=== PATIENT | male | born 1990 | race Caucasian/White ===

== ENCOUNTER → 2019-10-16 08:32 | Outpatient (CLI) | payer SELFPAY ==
--- NOTE | 2019-10-16 08:34 | RAD_ITS ---
STUDY: X-RAY - RIGHT HAND, ATTENTION INDEX FINGER REASON FOR EXAM: Male, 29 years old. LACERATION MID FINGER TECHNIQUE: 3 view(s) of the finger were obtained. COMPARISON: None. FINDINGS: Normal metacarpal head. Normal metacarpophalangeal joint. Normal proximal phalanx. Normal middle phalanx. Normal distal phalanx. Normal proximal interphalangeal joint. Normal distal interphalangeal joint. Diffuse soft tissue swelling. RAD/Finger(s) Min 2 Views IMPRESSION: Diffuse soft tissue swelling. No radiopaque foreign body is seen. Electronically Signed: Shawn Hilario, at 12:15 EST , Service support ,
== END ==
PROVIDERS: PCP Family Medicine; Referring Provider Physician Assistant; Visit Provider Physician Assistant
DX: S69.91XA Unspecified injury of right wrist, hand and finger(s), initial encounter (principal)
CPT/HCPCS: 73140

== ENCOUNTER → 2021-08-25 | Outpatient (CLI) | payer SELFPAY ==
--- NOTE | 2021-08-25 | VAS_PTH ---
PATIENT: YISEL ANDREWS LOC: [facility] U#:[id number] AGE/SX: 31/M ROOM: RE08/25/[address]: Dr. Rodolfo Romero MD : 1990 BED: DIS: 08/25/2021 SPEC #: [id number] RECD: 08/25/21 16:13 STATUS: [place] REM[place]o #: [id number] MANPREET: 08/25/21 00:[address]: Rodolfo Romero DEPT: SURGICAL PATHOLOGY RECD BY: Tre Flanagan ENTERED: 08/26/21 10:30 SP TYPE: VAS OTHR DR: Dr. Chikis Rollins MD Tissues: A - Vas deferens, NOS B - Vas deferens, NOS Procedures: Surgery Specimen Level II HEADER OPERATION: Bilateral partial vasectomy PRE-OP DIAGNOSIS: Sterilization TISSUE SUBMITTED: A ? Right vas deferens, B ? Left vas deferens MICROSCOPIC DIAGNOSIS A. Right vas deferens, segmental vasectomy: Complete cross-section of vas deferens with no pathologic change. B. Left vas deferens, segmental vasectomy: Complete cross-section of vas deferens with no pathologic change. AM:sandi 08/27/2021 MICROSCOPIC DESCRIPTION Slides are reviewed. GROSS DESCRIPTION A - Received is one container designated right vas deferens. The specimen consists of a cylindrical segment of pink-franklin soft tissue measuring 1.4 cm in length and 0.1 cm in maximum diameter. The specimen is totally submitted in one cassette. B - Received is one container designated left vas deferens. The specimen consists of a cylindrical segment of pink-franklin soft tissue measuring 1.1 cm in length and 0.2 cm in maximum diameter. The specimen is totally submitted in one cassette. / AM:sandi 08/26/2021 TC:4 CPT: 10695 x2
== END | disposition home or self-care (01) ==
LOC: LABSPEC 16:26
PROVIDERS: PCP Family Medicine; Referring Provider Surgery; Visit Provider Surgery
DX: Z30.2 Encounter for sterilization (principal)
CPT/HCPCS: 88302

== ENCOUNTER 2021-10-21 14:17 | Outpatient (CLI) | payer SELFPAY ==
[2021-10-22 13:48] LABS: Semen Analysis Post Vas ABSENT
== END 2021-10-21 23:59 | disposition home or self-care (01) ==
LOC: LABSPEC 14:18
PROVIDERS: PCP Family Medicine; Referring Provider Surgery; Visit Provider Surgery
DX: Z30.2 Encounter for sterilization (principal)
CPT/HCPCS: 89321

== ENCOUNTER 2022-05-04 10:31 | Emergency (ER) | payer SELFPAY ==
[2022-05-04 10:31] VITALS: BP 117/73; PULSE 64; RESP 16; TEMP 36.3; O2SAT 98; BMI 24.5
--- NOTE | 2022-05-04 10:46 | EDS_ITS ---
HPI History of Present Illness Chief Complaint: Flank Pain Informant: patient Narrative Narrative: 32-year-old male presenting to the emergency department sudden onset of left flank pain. Patient notes that it seems to radiate around towards his abdomen and is sharp and stabbing. He notes nausea and vomiting. Symptoms began abruptly at 630 when he took a hard landing while spreading maneuver. He denies any urinary symptoms or fevers. He notes there is a family history of kidney stones but he has never had 1. Standing up seems to make this worse. He cannot find a position of comfort. He denies any testicular pain. PFSH PFSH Home Medications lorazepam 2 mg tablet (Ativan) 2 mg PO DAILY PRN anxiety #1 TAB 08/15/21 [Rx Last Taken Unknown] acetaminophen 300 mg-codeine 15 mg tablet 1 tab PO Q6H PRN pain #10 tabs 08/25/21 [Rx Last Taken Unknown] acetaminophen 325 mg-codeine 15 mg tablet 1 tab PO .q8 PRN pain 08/25/21 [History Last Taken Unknown] ondansetron 4 mg disintegrating tablet 4 mg PO Q6H PRN nausea and vomiting #20 tabs 05/04/22 [Rx Last Taken Unknown] oxycodone-acetaminophen 5 mg-325 mg tablet 1 tab PO Q6H PRN PRN pain 5 days #20 TABLETS 05/04/22 [Rx Last Taken Unknown] Allergy/AdvReac Type Severity Reaction Status Date / Time acetaminophen [From Vicodin] AdvReac Rash Verified 05/04/22 10:34 hydrocodone [From Vicodin] AdvReac Rash Verified 05/04/22 10:34 Surgical History History of vasectomy (~08/2021) S/P nasal surgery Social History Smoking Status: Never smoker alcohol intake: never ROS ROS ED Constitutional Constitutional ED: Denies chills or weight loss Eyes Eyes: Denies change in vision or diplopia ENT ENT ED: Denies ear pain, rhinorrhea or sore throat Cardiovascular Cardiovascular: Denies chest pain, orthopnea, palpitations or racing heartbeat Respiratory/Chest Respiratory/Chest: Denies cough, dyspnea or orthopnea Gastrointestinal Gastrointestinal: Reports abdominal pain, nausea and vomiting; Denies diarrhea Genitourinary Genitourinary ED: Denies dysuria, hematuria or urinary frequency Musculoskeletal Musculoskeletal: Reports back pain; Denies arthralgias or myalgias Integumentary Denies abscess or rash Neurologic Neurologic: Denies headache(s) or weakness Psychiatric Psychiatric: Denies anxiety, depression, suicidal ideation or suicidal thoughts Endocrine Endocrinology: Denies polydipsia, polyphagia or polyuria Allergic/Immunologic Allergic/Immunologic ED: Denies mouth swelling, tongue swelling or urticaria EXAM Physical Exam Narrative Exam Narrative: Patient is writhing on the bed holding his left flank. Const Vital Signs: 05/04/22 10:31 Temperature 97.4 F L Temperature Source Temporal Pulse Rate 64 Respiratory Rate 16 Blood Pressure 117/73 Blood Pressure Mean 87 Pulse Ox 98 Oxygen Delivery Method Room Air Positive well nourished and well developed General Appearance ED: well developed HEENT Reports normocephalic, head/scalp atraumatic and moist mucous membranes Eyes PERRL and EOMs intact bilaterally Neck no lymphadenopathy, supple and no JVD Resp normal respiratory effort and clear to auscultation bilaterally Cardio regular rate, regular rhythm and no murmurs GI normal to inspection, nondistended, normoactive bowel sounds and non-tender Palpation: soft Back/Spine no CVA tenderness and normal ROM Extremity normal to inspection General Extremety ED: Negative for edema General Extremity: Negative for edema Neuro oriented x3 and CN's II-XII intact bilaterally Sensorium / Orientation: alert Motor Exam: strength 5/5 throughout Psych mental status grossly normal Mood & Affect: Negative for depressed or tearful Skin no rashes or lesions noted and no wounds MDM MDM MDM Narrative Medical decision making narrative: White count 10.7 with a creatinine of 1.05. Urinalysis demonstrated 50-100 red cells 0-5 whites 0-5 epithelials and no bacteria. CT of the abdomen and pelvis demonstrates a mid 3 mm ureteral stone. There is some associated hydronephrosis and hydroureter. Patient received pain and nausea medication as well as IV fluids and feels better. He will be discharged home with Percocet and Zofran and instructions to follow-up with urology. Return if worsening or concerns. Lab Data Attestation: I reviewed the patient's lab results. Labs: Laboratory Results - last 24 hr 05/04/22 05/04/22 05/04/22 10:50 10:50 11:42 WBC 10.7 RBC 5.29 Hgb 15.5 Hct 45.0 MCV 85.1 MCH 29.3 MCHC 34.4 RDW Std Deviation 37.2 RDW Coeff of Francisca 12.1 Plt Count 223 MPV 10.4 Immature Gran % (Auto) 0.400 Neut % (Auto) 75.7 H Lymph % (Auto) 16.8 L Moore % (Auto) 6.0 Eos % (Auto) 0.7 Baso % (Auto) 0.4 Absolute Neuts (auto) 8.1 H Absolute Lymphs (auto) 1.80 Nucleated RBC % 0 Sodium 139 Potassium 4.2 Chloride 106 Carbon Dioxide 30.0 Anion Gap 3 L BUN 18 Creatinine 1.05 Estim Creat Clear Calc 107.57 Est GFR (MDRD) Af Amer 105 Est GFR (MDRD) Non-Af 87 BUN/Creatinine Ratio 17.1 Glucose 98 Calcium 9.4 Urine Color Yellow Urine Clarity Turbid Urine pH 8.0 Ur Specific [place] 1.015 Urine Protein 30 H Urine Glucose (UA) Normal Urine Ketones Negative Urine Occult Blood 250 H Urine Nitrite Negative Urine Bilirubin Negative Urine Urobilinogen Normal Ur Leukocyte Esterase 25 H Urine RBC 50-100 SEEN Urine WBC 0-5 SEEN Ur Squamous Epith Cells 0-5 SEEN Urine Bacteria 0 SEEN Urine Mucus 0 SEEN Radiography Diagnostic Testing: Clinical Impression(s) from Imaging Studies Abdomen/Pelvis CT 05/04/22 10:46 IMPRESSION: 3 mm calculus in the midportion of the left ureter causing mild degree of left hydronephrosis and proximal left hydroureter. Punctate calcification in the lower pole calyx of the left kidney. Electronically Signed: Shawn Hilario MD at 11:28 EDT , Discharge Plan Triage Chief Complaint: Flank Pain ED Provider: Adán Cole Dx/Rx/DC Orders Clinical Impression: Ureterolithiasis, Renal colic on left side, Vomiting Instructions: ED Kidney Stone w/ Colic Prescriptions: New oxycodone-acetaminophen [oxycodone-acetaminophen] 5-325 mg tablet 1 tab PO Q6H PRN PRN (Reason: pain) 5 Days Qty: 20 0RF ondansetron 4 mg tablet,disintegrating 4 mg PO Q6H PRN (Reason: nausea and vomiting) Qty: 20 0RF No Action lorazepam [Ativan] 2 mg tablet 2 mg PO DAILY PRN (Reason: anxiety) Qty: 1 0RF Rx Instructions: 1 hour prior to procedure acetaminophen-codeine 325-15 mg tablet 1 tab PO .q8 PRN (Reason: pain) acetaminophen-codeine 300-15 mg tablet 1 tab PO Q6H PRN (Reason: pain) Qty: 10 0RF Primary Care Provider: Chikis Rollins Referrals: Chikis Rollins MD [Primary Care Provider] - As Needed Jose Malagon MD [Med Staff - Active Staff] - As soon as possible (For urologic consultation) Disposition Disposition: Home, Self Care
--- NOTE | 2022-05-04 10:46 | CT_ITS ---
STUDY: CT ABDOMEN AND PELVIS WITHOUT CONTRAST REASON FOR EXAM: Male, 32 years old. Left-sided flank pain and vomiting. RADIATION DOSAGE (If Supplied By Facility): CTDIvol = ( 6.81 ) mGy, DLP = ( 357.51 ) mGycm TECHNIQUE: Transaxial images were obtained from the dome of the diaphragm to the symphysis pubis without oral contrast, and without intravenous contrast. Sagittal and coronal images were reconstructed. Individualized dose optimization techniques were used for this CT. COMPARISON: None. FINDINGS: The visualized lung bases are unremarkable. The visualized portions of the heart are within normal limits. Normal liver. Normal gallbladder and extrahepatic biliary system. Normal spleen. Normal pancreas. Normal bilateral adrenal glands. Normal right kidney. Punctate calcification in the lower pole calyx of the left kidney. Mild degree of left hydronephrosis due to a 3 mm calculus in the midportion of the left ureter. There is a small hiatal hernia. Normal small intestine. Normal colon. The appendix is visualized and appears normal. Normal abdominal aorta. Normal inferior vena cava. Normal retroperitoneum. Normal urinary bladder. Normal abdominal wall. Normal osseous structures. CT/Abdomen/Pelvis without Cont IMPRESSION: 3 mm calculus in the midportion of the left ureter causing mild degree of left hydronephrosis and proximal left hydroureter. Punctate calcification in the lower pole calyx of the left kidney. Electronically Signed: Shawn Hilario MD at 11:28 EDT ,
[2022-05-04] MEDS: 0.9% Normal Saline 1,000 ML 250 ML IV (10:57)
[2022-05-04] MEDS: Ketorolac 30 MG/ML Syringe IV (10:57)
[2022-05-04] MEDS: Morphine 4 MG/ML Syringe IV ×2 (10:57→12:56)
[2022-05-04] MEDS: Ondansetron 4 MG/2 ML Vial IV (10:58)
[2022-05-04 11:15] LABS: Absolute Neutrophil Count 8.1 X10^3/uL (2.0-7.7); Basophil# 0.04 X10^3/uL; Basophil% 0.4 % (0-1); Eosinophil# 0.07 X10^3/uL; Eosinophils% 0.7 % (0-5); Hemoglobin 15.5 g/dL (13.0-16.5); Lymphocyte % 16.8 % (19-41); Mean Corp Hgb Conc 34.4 g/dL (32-36); Mean Corpuscular Hgb 29.3 pg (27.0-32.0); Mean Corpuscular Volume 85.1 fL (80-94); Mean Platelet Vol. 10.4 fl (6.2-12.0); Monocyte# 0.64 X10^3/uL; NRBC Flagged by Analyzer 0 % (0-5); Neutrophil # 8.14 X10^3/uL (2.7-7.7); Neutrophil % 75.7 % (47-70); Platelet Count 223 K/mm3 (150-450); RBC Distribution Width CV 12.1 % (11.6-14.6); RBC Distribution Width SD 37.2 fl (35.1-43.9); Red Blood Count 5.29 M/mm3 (4.6-6.2); White Blood Count 10.7 K/mm3 (4.4-11.0)
[2022-05-04 11:23] LABS: Anion Gap 3 (5-15); BUN 18 mg/dL (7-18); BUN/Creat Ratio 17.1 RATIO (10-20); Calcium,Total 9.4 mg/dL (8.5-10.1); Chloride 106 mmol/L (98-107); Creatinine, Serum 1.05 mg/dL (0.70-1.30); EST Glomerular Filtration Rate 87 mL/min (>60); Est Glom Filt Rate - Afr Amer 105 mL/min (>60); Estimated Creatinine Clearance 107.57 ml/min; Glucose 98 mg/dL (74-106); Potassium 4.2 mmol/L (3.5-5.1); Sodium Level 139 mmol/L (136-145)
[2022-05-04 11:48] LABS: Bacteria 0 SEEN /hpf (None Seen); Mucous, Urine 0 SEEN /hpf (<or=2+)
[2022-05-04 11:51] LABS: Color, Urine Yellow (Yellow); Glucose, Dipstick Normal (Normal); Ketone-Dipstick Negative (Negative); Leukocyte Esterase-Dipstick 25 /ul (Negative); Nitrite-Dipstick Negative (Negative); Occult Blood-Urine 250 /ul (Negative); Protein-Dipstick 30 mg/dl (Negative); Specific Gravity, Urine 1.015 (1.002-1.030); Urine Bilirubin Dipstick Negative (Negative); Urine Clarity Turbid (Clear); Urine Urobilinogen Normal (Normal)
[2022-05-04 12:07] LABS: Red Blood Cells-Urine 50-100 SEEN /hpf (0-5)
[2022-05-04 12:09] LABS: White Blood Cells 0-5 SEEN /hpf (0-5)
[2022-05-04 12:10] LABS: Squamous Epithelial Cells - UA 0-5 SEEN /hpf (0-5)
[2022-05-04 12:31] VITALS: RESP 18
[2022-05-04 12:33] VITALS: RESP 18
== END 2022-05-04 13:07 | disposition home or self-care (01) ==
PROVIDERS: Emergency Provider Emergency Medicine; PCP Family Medicine; Visit Provider Emergency Medicine
DX: N13.2 Hydronephrosis with renal and ureteral calculous obstruction (principal)
CPT/HCPCS: 74176; 80048; 81001; 85025; 96361; 96374; 96375; 96376; 99283; J7030; A4216; J2405